=== PATIENT | female | born 1965 | race Caucasian/White ===

== ENCOUNTER 2016-07-25 11:32 | Emergency (ER) | payer MEDICAID ==
[~2016-07-25] VITALS: Wt 75.0 kg
[~2016-07-25 11:32] MED LIST: CETI10CA PO; HYDR-3011 PO; HYDR200T39 PO; MET25 PO
[2016-07-25] MEDS ORDERED: LIDOCAINE 1% (MDV) 20 ML INJ SC ONE (13:00)
[2016-07-25] MEDS ORDERED: ACETAMINOPHEN/CODEINE #3 TAB PO ONE (13:00)
[2016-07-25] MEDS ORDERED: HYDR200T39 PO (13:50)
[2016-07-25] MEDS ORDERED: HYDR-3011 PO (13:50)
[2016-07-25] MEDS ORDERED: MET25 PO (13:50)
[2016-07-25] MEDS ORDERED: ACET500C5 PO (13:51)
[2016-07-25] MEDS ORDERED: CEPH-443 PO (13:52)
--- NOTE | 2016-07-25 13:55 | ERD ---
ER Documentation Chief Complaint Date/Time DATE: 07/25/16 TIME: 13:53 Chief Complaint R TOE PAIN X 3 DAYS HPI This 51-year-old female complains of a one-week history of pain in her right big toe. She denies any history of trauma. She has pain on the lateral aspect of the big toenail. She is also requesting refills of her medications for dermatomyositis which is hydroxy chloroquine, methotrexate and hydroxyzine. ROS All systems reviewed and are negative except as per history of present illness. Medications Home Meds Active Scripts Cephalexin* (Keflex*) 500 Mg Capsule, 500 MG PO QID for 5 Days, CAP Prov:MATTIE JOHNS MD 07/25/16 Acetaminophen* (Tylophen*) 500 Mg Capsule, 1 CAP PO Q6H Y for PAIN AND OR ELEVATED TEMP, #20 CAP Prov:MATTIE JOHNS MD 07/25/16 Hydroxychloroquine Sulfate* (Hydroxychloroquine Sulfate*) 200 Mg Tablet, 200 MG PO BID, #60 TAB Prov:MATTIE JOHNS MD 07/25/16 Methotrexate* (Methotrexate*) 2.5 Mg Tab, 7.5 MG PO QWEEK , #12 TAB Prov:MATTIE JOHNS MD 07/25/16 Hydroxyzine Hcl* (Hydroxyzine Hcl*) 25 Mg Tablet, 25 MG PO Q8H Y for ITCHING, # 30 TAB Prov:MATTIE JOHNS MD 07/25/16 Hydroxychloroquine Sulfate* (Hydroxychloroquine Sulfate*) 200 Mg Tablet, 200 MG PO BID, #60 TAB Prov:HARI FRAZIER PA-C 03/24/16 Methotrexate* (Methotrexate*) 2.5 Mg Tab, 7.5 MG PO weekly, #16 TAB Prov:HARI FRAZIER PA-C 03/24/16 Hydroxyzine Hcl* (Hydroxyzine Hcl*) 25 Mg Tablet, 25 MG PO QID, #40 TAB Prov:HARI FRAZIER PA-C 03/24/16 Cetirizine Hcl* (Zyrtec*) 10 Mg Capsule, 10 MG PO DAILY, #30 TAB.CHEW Prov:HARI FRAZIER PA-C 03/24/16 Allergies Allergies: Coded Allergies: No Known Allergy (Unverified , 03/24/16) PMhx/Soc Medical and Surgical Hx: pt denies Medical Hx, pt denies Surgical Hx Hx Miscellaneous Medical Probl: Yes (dermacytosis) Hx Alcohol Use: No Hx Substance Use: No Hx Tobacco Use: No Physical Exam Vitals Vital Signs Date Time Temp Pulse Resp B/P Pulse Ox O2 Delivery O2 Flow Rate FiO2 07/25/16 11:39 98.0 83 18 131/70 99 Physical Exam Const: [] Alert, [id number] per Head: Atraumatic Eyes: Normal Conjunctiva ENT: Normal External Ears, Nose and Mouth. Neck: Full range of motion..~ No meningismus. Resp: Clear to auscultation bilaterally Cardio: Regular rate and rhythm, no murmurs Abd: Soft, non tender, non distended. Normal bowel sounds Skin: No petechiae or rashes there is ingrown toenail on the right lateral big toe. There is some slight surrounding redness. There is no bony tenderness or deformities. There is no streaking or induration Back: No midline or flank tenderness Ext: No cyanosis, or edema Neur: Awake and alert Psych: Normal Mood and Affect Results 24 hrs Current Medications Medications (Trade) Dose Ordered Sig/Galdino Route PRN Reason Start Time Stop Time Status Last Admin Dose Admin Acetaminophen/ Codeine Phosphate (Tylenol No.3) 1 tab ONCE ONCE PO 07/25/16 13:00 07/25/16 13:01 DC 07/25/16 12:41 Lidocaine (Xylocaine 1% (Mdv) 20 ml) 20 ml ONCE ONCE SC 07/25/16 13:00 07/25/16 13:01 DC Procedures/[facility] Procedure note-patient was given Tylenol 3 by mouth. Right big toe was prepped with Betadine. 3 cc of lidocaine was used to perform a digital block. Anesthesia was obtained. Ingrown portion of nail was removed using clamps and scissors. The wound was dressed the patient tolerated procedure well. Patient will referred back to [facility] for primary care. She will given a short refill on her medications as requested. She was additionally given a prescription for Keflex for the slight surrounding redness and history of immunosuppressants. Patient shows no evidence of osteomyelitis, foreign body , signs or symptoms of fracture, dislocation, additional emergent condition Departure Diagnosis: Primary Impression: Ingrown toenail Condition: Stable Patient Instructions: Ingrown Toenail, Excised Referrals: [facility] Usted se longoria hecho un examen mdico de control que le indica que no est en brigitte condicin que requiera tratamiento urgente en el Departamento de Emergencia. Un estudio ms profundo y el tratamiento de cooper condicin pueden esperar sin ningn riesgo hasta que usted sea atendida/o en el consultorio de cooper mdico o brigitte cl amirah. Es responsabilidad suya arreglar brigitte demarcus para el seguimiento del lorene. MANEJO DE CONDICIONES NO URGENTES EN EL FUTURO 1) Si usted tiene un mdico de atencin primaria: Usted debera llamar a cooper mdico de atencin primaria antes de venir al departamento de emergencia. Despus de las horas de consultorio, cooper doctor o cooper asociado/a est disponible por telfono. El mdico o enfermero de taryn en el servicio telefnico puede asesorarle por sandeep medio para atender el problema, o lorene contrario se puede programar brigitte demarcus. 2) Si usted no tiene un mdico de atencin primaria: Llame al mdico o clnica de referencia que aparece abajo harvey las horas de consultorio para hacer brigitte demarcus para que le vean. CLINICAS: [facility] [phone] [facility] [phone] [facility] [phone] [address] [facility] [facility] [phone] [address] [facility] [phone] [address] [facility]. [phone] [address] Additional Instructions: Cheque otro vez con cooper doctor primario en el proximo lloyd or regresa para mas o nueva simptomas. MATTIE JOHNS MD Jul 25, 2016 13:55
== END 2016-07-25 14:30 | disposition home or self-care (01) ==
LOC: FTE 11:32
DX: L60.0 Ingrowing nail (principal)
CPT/HCPCS: 11765; Z7610

== ENCOUNTER 2016-09-29 11:18 | Emergency (ER) | payer MEDICAID ==
[~2016-09-29] VITALS: Ht 160 cm; Wt 75.5 kg
[~2016-09-29 11:18] MED LIST changes: +ACET500C5 PO; +CEPH-443 PO
[2016-09-29 11:23] VITALS: Ht 160 cm; Wt 75.5 kg
[2016-09-29 12:53] LABS: URINE BLOOD (Dip) POC Trace-intact (NEGATIVE)
[2016-09-29] MEDS ORDERED: NITR-58 PO (12:59)
[2016-09-29] MEDS ORDERED: MET25 PO (13:02)
[2016-09-29] MEDS ORDERED: HYDR200T39 PO (13:02)
--- NOTE | 2016-09-29 13:05 | ERD ---
ER Documentation Chief Complaint Date/Time DATE: 09/29/16 TIME: 13:03 Chief Complaint painful urination x 1 week HPI Patient is a 51-year-old female who presents to the ED with dysuria, urgency 1 week. She denies fever or chills. She denies back pain. She denies abdominal pain, nausea, vomiting, diarrhea or constipation. She is also here for refill of her methotrexate and hydrochloride quinine. She has no other complaints. Denies headache or dizziness. Denies chest pain, cough, shortness of breath or difficulty breathing. ROS All systems reviewed and are negative except as per history of present illness. Medications Home Meds Active Scripts Hydroxychloroquine Sulfate* (Hydroxychloroquine Sulfate*) 200 Mg Tablet, 200 MG PO BID for 30 Days, TAB Prov:UNIQUE CANELA PA-C 09/29/16 Methotrexate* (Methotrexate*) 2.5 Mg Tab, 10 MG PO ONCE for 90 Days, #48 TAB TAKE 4 TABLETS PO ONCE A WEEK ON THURSDAY. Prov:UNIQUE CANELA PA-C 09/29/16 Nitrofurantoin Monohyd Macrocr* (Macrobid*) 100 Mg Capsr, 100 MG PO BID for 5 Days, CAP Prov:UNIQUE CANELA PA-C 09/29/16 Cephalexin* (Keflex*) 500 Mg Capsule, 500 MG PO QID for 5 Days, CAP Prov:MATTIE JOHNS MD 07/25/16 Acetaminophen* (Tylophen*) 500 Mg Capsule, 1 CAP PO Q6H Y for PAIN AND OR ELEVATED TEMP, #20 CAP Prov:MATTIE JOHNS MD 07/25/16 Hydroxychloroquine Sulfate* (Hydroxychloroquine Sulfate*) 200 Mg Tablet, 200 MG PO BID, #60 TAB Prov:MATTIE JOHNS MD 07/25/16 Methotrexate* (Methotrexate*) 2.5 Mg Tab, 7.5 MG PO QWEEK , #12 TAB Prov:MATTIE JOHNS MD 07/25/16 Hydroxyzine Hcl* (Hydroxyzine Hcl*) 25 Mg Tablet, 25 MG PO Q8H Y for ITCHING, # 30 TAB Prov:MATTIE JOHNS MD 07/25/16 Hydroxychloroquine Sulfate* (Hydroxychloroquine Sulfate*) 200 Mg Tablet, 200 MG PO BID, #60 TAB Prov:HARI FRAZIER PA-C 03/24/16 Methotrexate* (Methotrexate*) 2.5 Mg Tab, 7.5 MG PO weekly, #16 TAB Prov:HARI FRAZIER PA-C 03/24/16 Hydroxyzine Hcl* (Hydroxyzine Hcl*) 25 Mg Tablet, 25 MG PO QID, #40 TAB Prov:HARI FRAZIER PA-C 03/24/16 Cetirizine Hcl* (Zyrtec*) 10 Mg Capsule, 10 MG PO DAILY, #30 TAB.CHEW Prov:HARI FRAZIER PA-C 03/24/16 Allergies Allergies: Coded Allergies: No Known Allergy (Unverified , 03/24/16) PMhx/Soc Medical and Surgical Hx: pt denies Surgical Hx Hx Miscellaneous Medical Probl: Yes (dermacytosis) Hx Alcohol Use: No Hx Substance Use: No Hx Tobacco Use: No FmHx Family History: No coronary disease, No diabetes, No other Physical Exam Vitals Vital Signs Date Time Temp Pulse Resp B/P Pulse Ox O2 Delivery O2 Flow Rate FiO2 09/29/16 11:23 97.9 72 18 132/71 99 Physical Exam GENERAL: Well-developed, well-nourished female. Appears in no acute distress. HEAD: Normocephalic, atraumatic. EYES: Pupils are equally reactive bilaterally. EOMs grossly intact. No conjunctival erythema. ENT: Moist mucous membranes. No uvula deviation. No kissing tonsils. No exudates. NECK: Supple. No lymphadenopathy or thyromegaly. No meningismus. negative kernig. negative brudinski. LUNG: Clear to auscultation bilaterally. No rhonchi, wheezing, rales or coarse breath sounds. HEART: Regular rate and rhythm. No murmurs, rubs or gallops. ABDOMEN: No scars, ecchymosis or rashes noted. Soft, nontender, and nondistended. Positive bowel sounds in all four quadrants. No rebound tenderness , no guarding. (-) McBurneys point tenderness. No CVA tenderness. BACK: No midline tenderness. Extremities: Equal pulses bilaterally. No peripheral clubbing, cyanosis or edema. No unilateral leg swelling. NEUROLOGIC: Alert and oriented. Moving all four extremities. 5/5 strength in all extremities. Normal speech. Steady gait. SKIN: Normal color. Warm and dry. No rashes or lesions. Capillary refill < 2 seconds Results 24 hrs Laboratory Tests Test 09/29/16 12:52 Bedside Urine pH (LAB) 5.5 Bedside Urine Protein (LAB) Negative Bedside Urine Glucose (UA) Negative Bedside Urine Ketones (LAB) Negative Bedside Urine Blood Trace-intact Bedside Urine Nitrite (LAB) Negative Bedside Urine Leukocyte Esterase (L 1+ Procedures/MDM ER COURSE: I kept the patient and/or family informed of laboratory and diagnostic imaging results throughout the emergency room course. MEDICAL DECISION MAKING: This is a 51-year-old female who presents with dysuria and urgency. Vital signs were reviewed. Patient is afebrile. Patient is not hypoxic. Patient is nontoxic or ill-appearing. Patient has a UTI. Low suspicion for ACS, AAA, perforated ulcer, bowel obstruction, cholecystitis, choledocholithiasis, cholangitis, pancreatitis, hepatic abscess, appendicitis, diverticulitis, gastroenteritis, hepatitis, peptic ulcer disease, HELLP syndrome. DISCHARGE: At this time, patient is stable for discharge and outpatient management with no new complaints during the ER course. Patient was sent home with Macrobid, hydrochloride quinine, methotrexate. Advised patient that she needs to follow- up with her primary care for evaluation of her lupus and further refills.. Patient will be discharged home with instructions to recheck for new or worsening symptoms such as fever, nausea, weakness, LOC and to follow up with primary care in the next 1-2 days. Patient was advised to return to the ER for any new or worsening symptoms. Plan was discussed and patient and/or family understands and agrees. Home instructions were given. Departure Diagnosis: Primary Impression: UTI (urinary tract infection) Urinary tract infection type: site unspecified Hematuria presence: without hematuria Qualified Code: N39.0 - Urinary tract infection without hematuria, site unspecified Additional Impression: Medication refill Condition: Stable Patient Instructions: Understanding Urinary Tract Infections (UTIs) Additional Instructions: Llame al doctor MAANA y harjit brigitte SILVINA PARA DENTRO DE 1-2 RODRIGUEZ.Dgale a la secretaria que nosotros le instruimos hacer esta silvina.Avise o llame si best condicin se empeora antes de la silvina. Regresa aqui si peor o no mejor. SIGUE CON BEST DOCTOR GENERAL PARA MAS RECETAS DE OTROS MEDICAMENTOS. UNIQUE CANELA PA-C Sep 29, 2016 13:05
[2016-09-29 13:13] VITALS: TEMP 98.4
== END 2016-09-29 13:14 | disposition home or self-care (01) ==
LOC: FTE 11:18
DX: N39.0 Urinary tract infection, site not specified (principal); Z76.0 Encounter for issue of repeat prescription
CPT/HCPCS: 81003; Z7502; 99284

== ENCOUNTER 2016-12-11 09:50 | Emergency (ER) | payer MEDICAID ==
[~2016-12-11] VITALS: Ht 157.5 cm; Wt 75.5 kg
[~2016-12-11 09:50] MED LIST changes: +NITR-58 PO
[2016-12-11 09:53] VITALS: Ht 157.5 cm; Wt 75.5 kg
[2016-12-11] MEDS ORDERED: morphine 4 MG/ML VIAL IV STA (10:43)
[2016-12-11] MEDS ORDERED: ONDANSETRON 4 MG INJ IV STA (10:43)
[2016-12-11] MEDS ORDERED: SOD CHLORIDE 0.9% 1,000 ML IV STA (10:43)
[2016-12-11 11:15] LABS: ADD SCAN DIFF NO
[2016-12-11 11:26] LABS: BASOPHIL # 0.1 10^3/ul (0.0-0.1); BASOPHILS % 1.1 % (0.0-2.0); EOSINOPHILS # 0.1 10^3/ul (0.0-0.5); EOSINOPHILS % 1.8 % (0.0-7.0); HEMATOCRIT 40.3 % (37.0-47.0); HEMOGLOBIN 13.8 g/dl (12.0-16.0); LYMPHOCYTES # 2.5 10^3/ul (0.8-2.9); LYMPHOCYTES % 31.3 % (15.0-51.0); MEAN CORPUSCULAR HEMOGLOBIN 31.2 pg (29.0-33.0); MEAN CORPUSCULAR HGB CONC 34.2 g/dl (32.0-37.0); MEAN CORPUSCULAR VOLUME 91.2 fl (82.0-101.0); MEAN PLATELET VOLUME 11.1 fl (7.4-10.4); MONOCYTE # 0.5 10^3/ul (0.3-0.9); MONOCYTES % 6.6 % (0.0-11.0); NEUTROPHIL # 4.6 10^3/ul (1.6-7.5); NEUTROPHILS % 58.9 % (39.0-77.0); PLATELET COUNT 236 10^3/UL (140-415); RED BLOOD COUNT 4.42 10^6/ul (4.20-5.40); RED CELL DISTRIBUTION WIDTH 13.9 % (11.5-14.5); WHITE BLOOD COUNT 7.9 10^3/ul (4.8-10.8)
[2016-12-11 11:35] LABS: ADD UMIC YES; URINE BILIRUBIN (Dip) NEGATIVE (NEGATIVE); URINE BLOOD (Dip) NEGATIVE (NEGATIVE); URINE COLOR LT. YELLOW (YELLOW); URINE GLUCOSE (Dip) NEGATIVE (NEGATIVE); URINE KETONES (Dip) NEGATIVE (NEGATIVE); URINE LEUKOCYTE ESTERASE (Dip) TRACE (NEGATIVE); URINE NITRITE (Dip) NEGATIVE (NEGATIVE); URINE TOTAL PROTEIN (Dip) NEGATIVE (NEGATIVE); URINE UROBILINOGEN (Dip) 0.2 E.U./dL (0.1-1.0)
[2016-12-11 11:39] LABS: ALBUMIN 4.9 g/dl (3.3-4.9); ALBUMIN/GLOBULIN RATIO 1.63; BILIRUBIN,INDIRECT 0.4 mg/dl (0-1.1); BILIRUBIN,TOTAL 0.4 mg/dl (0.2-1.3); CALCIUM 9.3 mg/dl (8.4-10.2); CREATININE 0.49 mg/dl (0.44-1.00); TOTAL PROTEIN 7.9 g/dl (6.1-8.1)
--- NOTE | 2016-12-11 12:04 | RADRPT ---
PROCEDURE: CT Abdomen and pelvis without contrast. CLINICAL INDICATION: Left flank pain for 3 days TECHNIQUE: CT scan of the abdomen and pelvis without contrast was performed on a multidetector hig h-resolution CT scan. . Coronal and sagittal reformatted images were obtained from the axial [facility] e images. Standard CT scan of the abdomen pelvis without contrast protocols were performed. The total exam CTDI equals 16.47 mGy and the total exam DLP equals 929.54 mGy-cm. One or more of the following dose reduction techniques were used: - Automated exposure control. - Adjustment of the mA and/or kV according to patient size. Use of iterative reconstruction technique. COMPARISON: None. FINDINGS: The kidneys are normal in size without calcified renal calculi hydronephrosis or intra renal masses bilaterally. The urinary bladder is not fully distended but is otherwise unremarkable. There is diverticular changes of the descending and sigmoid colon but no CT evidence of diverticulit is. The colon is otherwise unremarkable. The stomach, small bowel and appendix are unremarkable. The liver spleen pancreas adrenal glands and gallbladder are unremarkable. Negative for biliary nolan sandy dilation. There is no evidence of intra-abdominal free air, free fluid, abscesses or lymphadenopathy. There is atherosclerosis of the aorta but no evidence of aneurysm or periaortic fluid collections. There is soft tissue calcifications involving the lower thoracic and abdominal benz consistent with benign findings. No evidence of abdominal or pelvic hernias. There are degenerative changes lower thoracic and lumbar spine without acute osseous findings. Ther e are bilateral L5 spondylolysis defects with a grade 1 anterior spondylolisthesis of L5 on S1 verte bral bodies. Exaggerated lumbar lordosis. No evidence of osteolytic or osteoblastic lesions. IMPRESSION: 1. No evidence of calcified urinary calculi or obstructive uropathy. 2. Diverticulosis of the descending and sigmoid colon without CT evidence of diverticulitis. Unrem arkable appendix. 3. Negative for intra-abdominal free air fluid abscesses or lymphadenopathy. 4. Additional chronic changes as described above. RPTAT:AAJJ Physician Madisyn Date Time Electronically viewed and signed by Physician Madisyn on 12/11/2016 12:04 BM/
[2016-12-11 12:10] LABS: BACTERIA,URINE OCCASIONAL; SQUAMOUS EPITHELIAL CELL,UR FEW; URINE RBCS NONE SEEN /HPF (0)
[2016-12-11] MEDS ORDERED: FOLI-49 PO (12:14)
[2016-12-11] MEDS ORDERED: BEN25 PO (12:14)
[2016-12-11] MEDS ORDERED: ONDA4TAB14 PO (12:55)
[2016-12-11] MEDS ORDERED: HYDR-902 PO (12:55)
--- NOTE | 2016-12-11 13:26 | ERD ---
ER Documentation Chief Complaint Date/Time DATE: 12/11/16 TIME: 13:24 Chief Complaint Complains of diarrhea x 2 days HPI Patient is a 51-year-old female with no diabetes or hypertension who presents with left-sided abdominal pain and diarrhea. She mentions some blood in her stool. She felt dizzy. The symptoms started yesterday with vomiting. She denies fevers. She has had no treatment as of yet. Upon review of old medical records this is the patient's fourth visit to the ER since 2016. She does not know the name of her primary doctor. ROS All systems reviewed and are negative except as per history of present illness. Medications Home Meds Active Scripts Ondansetron (Ondansetron Odt) 4 Mg Tab.rapdis, 4 MG PO Q6H Y for NAUSEA AND/OR VOMITING, #10 TAB Prov:YADY DARDEN MD 12/11/16 Hydrocodone/Acetaminophen ([place] 10-325 Tablet) 1 Each Tablet, 1 TAB PO Q6H Y for PAIN, #7 TAB Prov:YADY DARDEN MD 12/11/16 Methotrexate* (Methotrexate*) 2.5 Mg Tab, 10 MG PO ONCE for 90 Days, #48 TAB TAKE 4 TABLETS PO ONCE A WEEK ON THURSDAY. Prov:UNIQUE CANELA PA-C 09/29/16 Hydroxyzine Hcl* (Hydroxyzine Hcl*) 25 Mg Tablet, 25 MG PO Q8H Y for ITCHING, # 30 TAB Prov:MATTIE JOHNS MD 07/25/16 Hydroxychloroquine Sulfate* (Hydroxychloroquine Sulfate*) 200 Mg Tablet, 200 MG PO BID, #60 TAB Prov:HARI FRAZIER PA-C 03/24/16 Reported Medications Diphenhydramine Hcl* (Benadryl*) 25 Mg Cap, 25 MG PO Q6H Y for ITCHING, CAP 12/11/16 Folic Acid* (Folic Acid*) 1 Mg Tablet, 1 MG PO DAILY, TAB 12/11/16 Discontinued Scripts Hydroxychloroquine Sulfate* (Hydroxychloroquine Sulfate*) 200 Mg Tablet, 200 MG PO BID for 30 Days, TAB Prov:UNIQUE CANELA PA-C 09/29/16 Nitrofurantoin Monohyd Macrocr* (Macrobid*) 100 Mg Capsr, 100 MG PO BID for 5 Days, CAP Prov:UNIQUE CANELA PA-C 09/29/16 Cephalexin* (Keflex*) 500 Mg Capsule, 500 MG PO QID for 5 Days, CAP Prov:MATTIE JOHNS MD 07/25/16 Acetaminophen* (Tylophen*) 500 Mg Capsule, 1 CAP PO Q6H Y for PAIN AND OR ELEVATED TEMP, #20 CAP Prov:MATTIE JOHNS MD 07/25/16 Hydroxychloroquine Sulfate* (Hydroxychloroquine Sulfate*) 200 Mg Tablet, 200 MG PO BID, #60 TAB Prov:MATTIE JOHNS MD 07/25/16 Methotrexate* (Methotrexate*) 2.5 Mg Tab, 7.5 MG PO QWEEK , #12 TAB Prov:MATTIE JOHNS MD 07/25/16 Methotrexate* (Methotrexate*) 2.5 Mg Tab, 7.5 MG PO weekly, #16 TAB Prov:HARI FRAZIER PA-C 03/24/16 Hydroxyzine Hcl* (Hydroxyzine Hcl*) 25 Mg Tablet, 25 MG PO QID, #40 TAB Prov:HARI FRAZIER PA-C 03/24/16 Cetirizine Hcl* (Zyrtec*) 10 Mg Capsule, 10 MG PO DAILY, #30 TAB.CHEW Prov:HARI FRAZIER PA-C 03/24/16 Allergies Allergies: Coded Allergies: No Known Allergy (Unverified , 12/11/16) PMhx/Soc History of Surgery: Yes (hysterrectomy) Hx Miscellaneous Medical Probl: Yes (dermacytosis; lupus) Hx Alcohol Use: No Hx Substance Use: No Hx Tobacco Use: No Smoking Status: Never smoker FmHx Family History: diabetes Physical Exam Vitals Vital Signs Date Time Temp Pulse Resp B/P Pulse Ox O2 Delivery O2 Flow Rate FiO2 12/11/16 09:53 97.2 76 20 120/77 97 Physical Exam Const: Moderate distress secondary to pain Head: Atraumatic Eyes: Normal Conjunctiva ENT: Normal External Ears, Nose and Mouth. Neck: Full range of motion..~ No meningismus. Resp: Clear to auscultation bilaterally Cardio: Regular rate and rhythm, no murmurs Abd: Left lower quadrant tenderness to palpation without rebound or guarding Skin: No petechiae or rashes Back: No midline or flank tenderness Ext: No cyanosis, or edema Neur: Awake and alert Psych: Normal Mood and Affect Result Diagram: 12/11/16 1058 12/11/16 1058 Results 24 hrs Laboratory Tests Test 12/11/16 10:58 White Blood Count 7.910^3/ul Red Blood Count 4.4210^6/ul Hemoglobin 13.8g/dl Hematocrit 40.3% Mean Corpuscular Volume 91.2fl Mean Corpuscular Hemoglobin 31.2pg Mean Corpuscular Hemoglobin Concent 34.2g/dl Red Cell Distribution Width 13.9% Platelet Count 20566^3/UL Mean Platelet Volume 11.1fl Neutrophils % 58.9% Lymphocytes % 31.3% Monocytes % 6.6% Eosinophils % 1.8% Basophils % 1.1% Nucleated Red Blood Cells % 0.0/100WBC Neutrophils # 4.610^3/ul Lymphocytes # 2.510^3/ul Monocytes # 0.510^3/ul Eosinophils # 0.110^3/ul Basophils # 0.110^3/ul Nucleated Red Blood Cells # 0.010^3/ul Urine Color LT. YELLOW Urine Clarity CLEAR Urine pH 7.0 Urine Specific [place] 1.010 Urine Ketones NEGATIVE Urine Nitrite NEGATIVE Urine Bilirubin NEGATIVE Urine Urobilinogen 0.2 E.U./dL Urine Leukocyte Esterase TRACE Urine Microscopic RBC NONE SEEN/HPF Urine Microscopic WBC 0-2/HPF Urine Squamous Epithelial Cells FEW Urine Bacteria OCCASIONAL Urine Hemoglobin NEGATIVE Urine Glucose NEGATIVE% Urine Total Protein NEGATIVE Sodium Level 144mmol/L Potassium Level 4.0mmol/L Chloride Level 108mmol/L Carbon Dioxide Level 27mmol/L Anion Gap 13 Blood Urea Nitrogen 11mg/dl Creatinine 0.49mg/dl Glucose Level 93mg/dl Calcium Level 9.3mg/dl Total Bilirubin 0.4mg/dl Direct Bilirubin 0.00mg/dl Indirect Bilirubin 0.4mg/dl Aspartate Amino Transf (AST/SGOT) 31IU/L Alanine Aminotransferase (ALT/SGPT) 38IU/L Alkaline Phosphatase 77IU/L Total Protein 7.9g/dl Albumin 4.9g/dl Globulin 3.00g/dl Albumin/Globulin Ratio 1.63 Lipase 38U/L Current Medications Medications (Trade) Dose Ordered Sig/Galdino Route PRN Reason Start Time Stop Time Status Last Admin Dose Admin Sodium Chloride (NS) 1,000 ml @ 1,000 mls/hr Q1H STAT IV 12/11/16 10:43 12/11/16 11:42 DC 12/11/16 11:26 Morphine Sulfate (morphine) 4 mg ONCE STAT IV 12/11/16 10:43 12/11/16 10:44 DC 12/11/16 11:27 Ondansetron HCl (Zofran Inj) 4 mg ONCE STAT IV 12/11/16 10:43 12/11/16 10:44 DC 12/11/16 11:27 Procedures/MDM CT scan shows no acute surgical process per radiology. Patient is a 51-year-old female presents with abdominal pain. Laboratory studies were normal. Urinalysis shows no signs of acute infection. CT scan shows no signs of surgical process. At this point I doubt appendicitis, cholecystitis, pancreatitis, diverticulitis, or bowel obstruction. I believe outpatient management is appropriate. However the patient will need close follow-up with her primary doctor within 24 hours for reevaluation. She can return sooner for any worsening symptoms. She will be given a prescription for [place] and Zofran for systematic relief. Departure Diagnosis: Primary Impression: Abdominal pain Abdominal location: left lower quadrant Qualified Code: R10.32 - Left lower quadrant pain Condition: Fair Patient Instructions: Abdominal Pain Referrals: Your doctor Additional Instructions: Visite a cooper valencia gaston para un EXAMEN.Regrese a estas instalaciones si no se mejora sandi esperbamos o sandi sil dipatrick. YADY DARDEN MD Dec 11, 2016 13:26
[2016-12-11 14:15] VITALS: BP 149/81; PULSE 59; RESP 16; TEMP 97.9
== END 2016-12-11 14:15 | disposition home or self-care (01) ==
LOC: FTE 09:50 → E/R 14:15
DX: R10.32 Left lower quadrant pain (principal); R11.10 Vomiting, unspecified
CPT/HCPCS: 74176; 80053; 81001; 83690; 85025; J2270; J2405; J7030; 36415; 96374; 96375